=== PATIENT | male | born 1945 | race Two or more races ===

== ENCOUNTER 2018-01-13 15:23 | Emergency (ER) | payer MEDICAID | END 2018-01-13 16:24 | disposition home or self-care (01) | LOC: FTE 15:23 | DX: S80.861A Insect bite (nonvenomous), right lower leg, initial encounter (principal); W57.XXXA Bitten or stung by nonvenomous insect and other nonvenomous arthropods, initial encounter; Y92.9 Unspecified place or not applicable | CPT/HCPCS: 99283; Z7502 ==